=== PATIENT | female | born 1985 | race Caucasian/White ===

== ENCOUNTER → 2016-07-22 | Outpatient (CLI) | payer BC ==
[2013-08-05 15:20] VITALS: BP 134/88
[~2016-07-22] MED LIST: FLUO20CA16 PO; LURA80TA PO; TRAZ100T12 PO; birth control pill
--- NOTE | 2016-07-22 15:32 | KCIC ---
Examination: Ultrasound pelvis. HISTORY History of abnormal heavy periods. COMPARISON None available. TECHNIQUE Transabdominal ultrasound examination the pelvis. Findings: The uterus measures 9.0 x 3.7 x 5.3 centimeters. The endometrium is 6 millimeters in thickness. The right ovary measures 3.9 x 2.2 x 4.2 centimeters. Blood flow identified in the right ovary. The left ovary could not be identified likely prior surgical changes. No significant free fluid identified in the cul-de-sac. IMPRESSION Unremarkable visualized exam. The left ovary could have identified likely prior surgical changes. Electronically signed by: Fransico Santiago (Jul 22, 2016 15:31:11)
== END | disposition home or self-care (01) ==
LOC: KCIC US 14:57
PROVIDERS: ATTEND Family Medicine
DX: N92.0 Excessive and frequent menstruation with regular cycle (principal); Z15.09 Genetic susceptibility to other malignant neoplasm
CPT/HCPCS: 76856